=== PATIENT | male | born 1975 | race Caucasian/White ===

== ENCOUNTER 2018-07-01 21:22 | Inpatient (IN) | payer SELFPAY ==
[~2018-07-01] VITALS: Ht 167.6 cm; Wt 52.4 kg
[2018-07-01] MEDS ORDERED: SODIUM CHLORIDE 0.9% 1,000 ML IV ONE (22:30)
[2018-07-01] MEDS ORDERED: ONDANSETRON HCL 4MG/2ML INJ IV ONE (22:30)
[2018-07-01] MEDS ORDERED: FAMOTIDINE 20MG/2ML VIAL IV ONE (22:30)
[2018-07-01 22:58] LABS: HEMATOCRIT. 54.5 % (42.0-52.0); HEMOGLOBIN. 17.7 g/dL (14.0-18.0); MEAN CORPUSCULAR VOLUME 86.2 fL (80.0-94.0); MEAN PLATELET VOLUME 8.4 fl (7.4-10.4); PLATELET 321 x1000/uL (130-400); RED BLOOD CELL COUNT 6.33 mill/uL (4.7-6.1); RED CELL DISTRIBUTION WIDTH 15.4 % (11.6-14.6)
[2018-07-01 23:04] LABS: BG BASE EXCESS -15.8 mmol/L (-2.0-2.0); BG CARBOXYHEMOGLOBIN 1.3 % (0.5-1.5); BG DEOXYHEMOGLOBIN 2.5 % (0.0-5.0); BG FRACTION INSPIRED OXYGEN 21; BG HCO3 ACT 9.2 mmol/L (22.0-26.0); BG METHEMOGLOBIN 0.3 % (0.0-1.5); BG OXYGEN SATURATION 97.5 % (92.0-98.5); BG OXYHEMOGLOBIN 95.9 % (94.0-97.0); BG PCO2 21.9 mmHg (35.0-45.0); BG PH 7.241 (7.350-7.450); BG PO2 115.4 mmHg (75.0-100.0); BG SAMPLE SITE RIGHT BRACHIAL; BG TOTAL HEMOGLOBIN 16.8 g/dL (12.0-18.0); BG VENT MODE ROOM AIR
[2018-07-01 23:04] LABS: ETHANOL BLOOD < 10 mg/dL
[2018-07-01 23:06] LABS: PHOSPHORUS 4.5 mg/dL (2.5-4.9)
[2018-07-01 23:11] LABS: PLATELET ESTIMATE NORMAL
[2018-07-01 23:34] LABS: BETA HYDROXYBUTYRATE 15.8 mMol/L (0.0-0.3)
[2018-07-02] MEDS ORDERED: INSULIN REGULAR (DRIP) 100 UNITS in SODIUM CHLORIDE 0.9% 100 ML IV NR (00:30)
[2018-07-02] MEDS ORDERED: INSULIN REGULAR (HUMULIN R) UD 100 UNITS/ML SYR IV ONE (00:30)
[2018-07-02] MEDS ORDERED: INSULIN REGULAR (DRIP) 100 UNITS in SODIUM CHLORIDE 0.9% 100 ML IV ONE (00:30)
[2018-07-02 00:53] LABS: CHLORIDE 102 mEq/L (98-107)
[2018-07-02] MEDS ORDERED: INSULIN REGULAR (HUMULIN R) 300UNITS/3ML IV NR (01:00)
[2018-07-02] MEDS: ONDANSETRON HCL 4MG/2ML INJ IV PRN ×4 (02:07→21:52)
[2018-07-02 02:31] LABS: CHLORIDE 107 mEq/L (98-107)
[2018-07-02] MEDS ORDERED: KCL 20MEQ/100ML PREMIX 100 ML IV NR (02:45)
[2018-07-02 06:37] LABS: CHLORIDE 110 mEq/L (98-107)
[2018-07-02 06:38] LABS: CHLORIDE 113 mEq/L (98-107)
[2018-07-02 10:19] LABS: CLARITY URINE CLEAR (CLEAR); COLOR URINE YELLOW (YELLOW); KETONES URINE 4+ (NEGATIVE); LEUKOCYTE ESTERASE URINE NEGATIVE (NEGATIVE); NITRITE URINE NEGATIVE (NEGATIVE); OCCULT BLOOD URINE 1+ (NEGATIVE); PH URINE 5.5 (4.5-8.0); PROTEIN URINE 2+ (NEGATIVE); UROBILINOGEN URINE 0.2 E.U./dL (0.2-1.0)
[2018-07-02 10:21] LABS: CHLORIDE 114 mEq/L (98-107)
[2018-07-02 10:27] LABS: BETA HYDROXYBUTYRATE 5.6 mMol/L (0.0-0.3)
[2018-07-02 10:49] LABS: BG BASE EXCESS -6.8 mmol/L (-2.0-2.0); BG CARBOXYHEMOGLOBIN 1.3 % (0.5-1.5); BG DEOXYHEMOGLOBIN 2.8 % (0.0-5.0); BG FRACTION INSPIRED OXYGEN 21; BG METHEMOGLOBIN 0.2 % (0.0-1.5); BG OXYGEN SATURATION 97.2 % (92.0-98.5); BG OXYHEMOGLOBIN 95.7 % (94.0-97.0); BG PH 7.406 (7.350-7.450); BG PO2 98.5 mmHg (75.0-100.0); BG SAMPLE SITE RIGHT BRACHIAL; BG TOTAL HEMOGLOBIN 15.4 g/dL (12.0-18.0); BG VENT MODE ROOM AIR
[2018-07-02] MEDS ORDERED: DEXTROSE 50% WATER 50ML SYRINGE IV PRN (16:45)
[2018-07-02 18:20] VITALS: BP 128/88
[2018-07-02] MEDS: BLOOD SUGAR DIAGNOSTIC STRIP TEST SCH ×2 (19:09→23:43)
[2018-07-02] MEDS: INSULIN LISPRO 100 UNITS/ML SUBCUT SCH ×2 (19:13→23:43)
[2018-07-02 20:00] VITALS: BP 125/80
[2018-07-02] MEDS ORDERED: MORPHINE SULFATE 4 MG/ML CPJ (NOT FOR IM USE) IV PRN (20:15)
[2018-07-02] MEDS ORDERED: HYDROCODONE/APAP 7.5/325MG 1 TAB TABLET PO PRN (20:15)
[2018-07-02] MEDS ORDERED: ONDANSETRON HCL 4MG/2ML INJ IV PRN (20:15)
[2018-07-02] MEDS ORDERED: GUAIFENESIN 200MG/10ML SUGAR FREE UDC PO PRN (20:15)
[2018-07-02] MEDS ORDERED: LORAZEPAM 2MG/ML CPJ IV PRN (20:15)
[2018-07-02 21:00] VITALS: BP 116/83
[2018-07-02] MEDS: POTASSIUM CHLORIDE 20MEQ TABLET SR PO SCH (21:33)
[2018-07-02] MEDS: ENOXAPARIN 40MG/0.4ML SYR SUBCUT SCH (21:33)
[2018-07-02] MEDS: SODIUM CHLORIDE 0.9% 1,000 ML IV SCH (21:34)
[2018-07-02 22:00] VITALS: BP 135/92
[2018-07-03] VITALS (18 sets, daily range): BP systolic 104–133; BP diastolic 64–88
[2018-07-03] MEDS: BLOOD SUGAR DIAGNOSTIC STRIP TEST SCH ×3 (06:00→18:04)
[2018-07-03] MEDS: ONDANSETRON HCL 4MG/2ML INJ IV PRN ×2 (07:10→15:05)
[2018-07-03] MEDS: SODIUM CHLORIDE 0.9% 1,000 ML IV SCH ×2 (07:10→16:15)
[2018-07-03] MEDS: INSULIN LISPRO 100 UNITS/ML SUBCUT SCH ×3 (07:16→18:23)
[2018-07-03 08:20] LABS: METHADONE URINE SCREEN NEGATIVE (NEGATIVE); OPIATES URINE SCREEN NEGATIVE (NEGATIVE)
[2018-07-03 08:21] LABS: *AMPHETAMINES SCREEN URINE NEGATIVE (NEGATIVE); *BARBITURATES SCREEN URINE NEGATIVE (NEGATIVE); *BENZODIAZEPINES SCREEN URINE NEGATIVE (NEGATIVE); *COCAINE SCREEN URINE NEGATIVE (NEGATIVE); CANNABINOID URINE SCREEN NEGATIVE (NEGATIVE); PHENCYCLIDINE URINE SCREEN NEGATIVE (NEGATIVE)
[2018-07-03] MEDS: POTASSIUM CHLORIDE 20MEQ TABLET SR PO SCH (09:00)
[2018-07-03] MEDS: ENOXAPARIN 40MG/0.4ML SYR SUBCUT SCH (21:42)
[2018-07-04] VITALS (14 sets, daily range): BP systolic 100–145; BP diastolic 62–96
[2018-07-04] MEDS: INSULIN LISPRO 100 UNITS/ML SUBCUT SCH ×4 (00:35→18:37)
[2018-07-04] MEDS: BLOOD SUGAR DIAGNOSTIC STRIP TEST SCH ×4 (00:59→18:28)
[2018-07-04] MEDS: SODIUM CHLORIDE 0.9% 1,000 ML IV SCH ×2 (05:07→12:15)
[2018-07-04 06:27] LABS: BASOPHILS % 0.1 % (0.0-2.0); EOSINOPHILS % 0.5 % (0.0-5.0); HEMATOCRIT. 37.1 % (42.0-52.0); HEMOGLOBIN. 12.3 g/dL (14.0-18.0); LYMPHOCYTES % 23.5 % (20.0-50.0); MEAN CORPUSCULAR HEMOGLOBIN 27.5 pg (28.0-32.0); MEAN CORPUSCULAR VOLUME 82.8 fL (80.0-94.0); MEAN PLATELET VOLUME 8.3 fl (7.4-10.4); MONOCYTES % 6.6 % (2.0-8.0); NEUTROPHILS % 69.3 % (40.0-76.0); PLATELET 176 x1000/uL (130-400); RED BLOOD CELL COUNT 4.48 mill/uL (4.7-6.1); RED CELL DISTRIBUTION WIDTH 14.9 % (11.6-14.6)
[2018-07-04 06:42] LABS: CHLORIDE 103 mEq/L (98-107)
[2018-07-04 06:50] LABS: PHOSPHORUS 1.8 mg/dL (2.5-4.9)
[2018-07-04] MEDS: POTASSIUM CHLORIDE 20MEQ TABLET SR PO SCH (10:37)
[2018-07-04] MEDS: ONDANSETRON HCL 4MG/2ML INJ IV PRN (10:37)
[2018-07-04] MEDS ORDERED: POTASSIUM PHOS,M-BASIC-D-BASIC 30 MMOL in SODIUM CHLORIDE 0.9% 500 ML IV NR (12:00)
== END 2018-07-04 20:18 | disposition home or self-care (01) | DRG 420 ==
LOC: ER 21:22 → 5EST 07-02 01:10 → ENRESERV 07-02 09:29 → CANRESERV 07-02 09:29 → ENRESERV 07-02 15:59 → CANRESERV 07-02 15:59 → EDBEDREQSVC 07-02 16:27 → ENRESERV 07-02 17:07
PROVIDERS: ADMIT Internal Medicine Nephrology; ATTEND Internal Medicine Nephrology
DX: E11.10 Type 2 diabetes mellitus with ketoacidosis without coma (principal); E83.39 Other disorders of phosphorus metabolism; E87.0 Hyperosmolality and hypernatremia; E87.6 Hypokalemia; Z79.4 Long term (current) use of insulin; Z83.3 Family history of diabetes mellitus; Z91.14 Patient's other noncompliance with medication regimen; Z79.899 Other long term (current) drug therapy
CPT/HCPCS: 36415; 36600; 80048; 80305; 82010; 82375; 82805; 82962; 83735; 84100; 96365; 96366; 96375; 99291; J1650; J1815; J2060; J2270; J2405; J3480; J3490; J7030; J7040; J7050

== ENCOUNTER 2021-09-15 12:14 | Emergency (ER) | payer MEDICAID ==
[~2021-09-15] VITALS: Ht 165.1 cm; Wt 57.0 kg
[2021-09-15 12:17] VITALS: BP 93/62
[2021-09-15 15:53] LABS: BASOPHILS % 0.2 % (0.0-2.0); CHLORIDE 104 mEq/L (98-107); EOSINOPHILS % 2.4 % (0.0-5.0); HEMATOCRIT. 41.7 % (42.0-52.0); HEMOGLOBIN. 13.7 g/dL (14.0-18.0); LYMPHOCYTES % 27.2 % (20.0-50.0); MEAN CORPUSCULAR HEMOGLOBIN 28.2 pg (28.0-32.0); MEAN CORPUSCULAR VOLUME 85.8 fL (80.0-94.0); MEAN PLATELET VOLUME 8.3 fl (7.4-10.4); MONOCYTES % 10.3 % (2.0-8.0); NEUTROPHILS % 59.9 % (40.0-76.0); PLATELET 218 x1000/uL (130-400); RED BLOOD CELL COUNT 4.86 mill/uL (4.7-6.1); RED CELL DISTRIBUTION WIDTH 14.5 % (11.6-14.6)
[2021-09-15] MEDS ORDERED: FAMO40TA70 MT (18:20)
== END 2021-09-15 18:36 | disposition home or self-care (01) ==
LOC: ER 12:14
DX: R07.89 Other chest pain (principal); R94.31 Abnormal electrocardiogram [ECG] [EKG]; K76.89 Other specified diseases of liver; E11.9 Type 2 diabetes mellitus without complications
CPT/HCPCS: 36415; 71045; 76705; 80053; 82962; 83880; 84484; 85025; 93005; 99285